=== PATIENT | male | born 1940 | race Caucasian/White ===

== ENCOUNTER 2020-04-01 09:46 | Observation (INO) | payer MEDICARE, OTHER ==
[~2020-04-01] VITALS: Ht 175.3 cm; Wt 70.8 kg
[~2020-04-01 09:46] MED LIST: Z ANDROGEL TP; Z.0.COZAAR50 MG PO; Z.0.FLOMAX0.4 MG PO; Z.0.LIPITOR20 MG PO; Z.0.NORCO 10-325 T1 PO; Z.0.PLAVIX75 MG PO; Z.1.TIZANIDINE HCL4 PO; [UNRECOGNIZED DRUG - OTHER] PO
[2020-04-01] MEDS: SODIUM CHLORIDE 0.9% 1000ML 1,000 ML IV SCH ×3 (10:15→12:30)
--- NOTE | 2020-04-01 10:20 | NUR ---
pt placed on droplet isolation for PUI of covid-19
[2020-04-01] MEDS ORDERED: SODIUM CHLORIDE 0.9% 1000ML 1,000 ML ONE (10:24)
[2020-04-01] MEDS ORDERED: IBUPROFEN 400 MG TAB ONE (10:24)
[2020-04-01] MEDS ORDERED: IBUPROFEN 400 MG TAB PO ONE (10:30)
[2020-04-01] MEDS: VANCOMYCIN HCL 1 GM in SODIUM CHLORIDE 0.9% 250ML 250 ML IV SCH ×2 (10:50→14:13)
[2020-04-01] MEDS ORDERED: VANCOMYCIN 1GM/NS 250 ML 250 ML ONE (10:53)
[2020-04-01] MEDS ORDERED: LEVOFLOXACIN 750MG/D5W 150ML 150 ML IV SCH ×2 (11:00→15:00)
--- NOTE | 2020-04-01 11:12 | Emergency Department Note ---
History of Present Illnes History of Present Illness Chief Complaint: General Medicine Complaints - altered mental status History of Present Illness This is a 79 year old male, with a history of ASCVD status post CABG, NIDDM, hypertension, hyperlipidemia, and chronic neck pain, is brought into the ED by his , for evaluation of altered mental status. Patient's states that she found him in the bathroom this morning, sitting on the commode, and "talking out of his head." She states that he felt warm, and when she checked his temperature he had a temp of 102. Patient did not receive anything for fever, prior to arrival. She was able to assist him in ambulating back to the bed, and then she prepared to bring him in for evaluation. Patient has had no prior sick symptoms, other then shows states "he has been complaining of being tired," lately. Prior to this morning, patient has not had any fever, nausea, vomiting, diarrhea, headache, or complaints of abdominal pain. Patient does have chronic neck pain following several cervical surgeries. Historian: Family Member () Arrival Mode: Car (vital is a U last long as he) [employer] Required: No ( is is ordered and an absolute is 1 she also.) Onset (how long ago): hour(s) (2) Location: general Quality: altered mental status Radiation: Reports non-radiation Severity: moderate Onset quality: sudden Duration (how long): hour(s) (2) Timing of current episode: constant Progression: unchanged Chronicity: new Context: Denies recent illness, Denies recent surgery, Denies recent travel, Denies trauma/injury, Denies new medications Relieving factors: none Exacerbating factors: none Associated symptoms: Reports confusion, Reports fever/chills, Reports malaise, Reports weakness; Denies chest pain, Denies cough, Denies headaches, Denies nausea/vomiting, Denies shortness of breath Treatments prior to arrival: none Risk factors: Elderly, comorbid conditions including DM, fever Past Medical/Family History Physician Review I have reviewed the patient's past medical and family history. Any updates have been documented here. Past Medical History Recent Fever: No (not until [employer]) Clinical Suspicion of Infectio: Yes New/Unexplained Change in Ment: Yes Past Medical History: Hypertension, Diabetes (NIDDM), CAD (s/p CABG), Kidney Stones, Hyperlipedemia Other Medical History: NEUROPATHY IN FEET BPH WEARS HEARING AIDS Chronic Neck Pain - followed by pain management [facility] Past Surgical History: CABG (x 3 in 2014;), Knee Replacement (left), Cataract Removal (bilateral;) Other Surgery: FUSED DISC IN NECK Shoulder Surgery Social History Smoking Cessation: Never Smoker Alcohol Use: None Any Illegal Drug Use: No TB Exposure/Symptoms: No Physically hurt or threatened: No Family History Family history of heart diseas: No Other Last Tetanus: UNK Any Pre-Existing Lines (PICC,: No Is patient up to date on immun: Yes Review of Systems Review of Systems Constitutional: Reports fever, Reports malaise EENTM: Reports no symptoms Cardiovascular: Denies chest pain, Denies edema, Denies syncope Respiratory: Denies cough, Denies dyspnea, Denies dyspnea on exertion Gastrointestinal: Denies abdominal pain, Denies constipation, Denies diarrhea, Denies nausea, Denies vomiting Genitourinary: Denies dysuria, Denies hematuria Musculoskeletal: Reports neck pain (chronic); Denies joint swelling Integumentary: Denies change in color, Denies rash Neurological: Denies headache, Denies tingling, Denies weakness Endocrine: Reports no symptoms Hematological/Lymphatic: Reports no symptoms; Denies anemia, Denies blood clots, Denies swollen glands Review of other systems: All other systems negative Physical Exam Related Data Allergies: Coded Allergies: No Known Allergies (Unverified , 02/02/12) Vital signs reviewed: Yes Physical Exam CONSTITUTIONAL Constitutional: Present well-developed, Present well-nourished; Absent distressed, Absent ill appearing HENT HENT: Present normocephalic, Present atraumatic, Present oropharynx clear/moist, Present nose normal; Absent nasal congestion, Absent rhinorrhea, Absent pharynx abnormal HENT L/R: Present left ext ear normal, Present right ext ear normal EYES Eyes: Reports PERRL, Reports conjunctivae normal NECK Neck: Present supple; Absent JVD, Absent cervical adenopathy PULMONARY Pulmonary: Present effort normal, Present other (bibasilar, diminshed breath sound); Absent respiratory distress CARDIOVASCULAR Cardiovascular: Present regular rhythm, Present heart sounds normal, Present capillary refill normal, Present normal rate, Present strong pulses GASTROINTESTINAL Abdominal: Present soft, Present nontender, Present bowel sounds normal; Absent distension, Absent tender, Absent guarding, Absent rebound GENITOURINARY Genitourinary: Present exam deferred SKIN Skin: Present warm, Present dry; Absent rash MUSCULOSKELETAL Musculoskeletal: Present ROM normal; Absent edema, Absent tenderness NEUROLOGICAL Neurological: Present alert, Present no gross motor or sensory deficits, Present abnormal gait (a bit unsteady), Present other (A&O x 2, person, place, year "2000 or 2001";); Absent cranial nerve deficit PSYCHOLOGICAL Results Laboratory Laboratory CBC - WBC = 15.8, nl H/H and Plt CMP - nl except for Gluc = 261, BUN = 26, Cr = 1.3, Lactic Acid = 3.21; Cardiacs - nl except for Myoglobin = 405; UA (straight cath.) - negative, except for Glu = 500 mg/dl, blo - small; Lab results reviewed: Yes Imaging Imaging results reviewed: Yes Impressions [place] [address] Patient Name: MILLIE ELENA MR #: [id number] : 1940 Age/Sex: 79/M Req #: [id number] Adm Physician: Ordered by: OLAYINKA EVANS MD Report #: [id number] Location: [facility] Room/Bed: Procedure: [id number] HOPD/CXR 2 VIEW - [facility] Exam Date: 04/01/20 Exam Time: 1050 REPORT STATUS: Signed EXAM: CXR 2 VIEW - [facility] DATE: 04/01/2020 10:50 AM INDICATION: Altered mental status COMPARISON: None FINDINGS: There are postsurgical changes from prior median sternotomy. The trachea is midline. There are mildly increased right greater than left basilar opacities which may reflect atelectasis. A developing airspace process is not entirely excluded. There is no evidence for large focal consolidation, pneumothorax, or significant pleural effusion. The cardiomediastinal silhouette and pulmonary vascular within normal limits. Degenerative changes noted at the visualized spine. No acute osseous abnormality is identified. IMPRESSION: Mild bibasilar opacities suggestive of atelectasis. Otherwise, no acute cardiopulmonary process identified. Signed by: Dr. Salbador Jacobs MD on 04/01/2020 11:35 AM Dictated By: SALBADOR JACOBS MD 1135 Transcribed By: ETELVINA on 04/01/20 1135 COPY TO: OLAYINKA EVANS MD~ [place] [address] Patient Name: MILLIE ELENA MR #: [id number] : 1940 Age/Sex: 79/M Req #: [id number] Adm Physician: Ordered by: OLAYINKA EVANS MD Report #: [id number] Location: [facility] Room/Bed: ___ Procedure: [id number] HOPD/CT BRAIN -[facility] Exam Date: 04/01/20 Exam Time: 1113 REPORT STATUS: Signed EXAMINATION: Head CT HISTORY: Alteration of consciousness, low O2 saturation COMPARISON: None. TECHNIQUE: Helical axial images of the head were obtained. Reformatted coronal and sagittal images from the axial data. Dose modulation, iterative reconstruction, and/or weight based adjustment of the mA/kV was utilized to reduce the radiation dose to as low as reasonably achievable. Image quality: Motion/streaking artifact limits the evaluation of the skull base and posterior cranial fossa. FINDINGS: Parenchyma: 1. Few scatter mostly juxtacortical and periventricular white matter hypodensities, most likely nonspecific chronic microvascular ischemic changes. 2. Portable tiny chronic lacunar infarct in the right globus pallidus. 3. No mass or hemorrhage. No CT evidence of acute territorial vascular insult. Extra-axial spaces:No abnormal density. No extra-axial fluid collections Brain volume: Normal for age. Ventricles: No hydrocephalus or displacement. Arteries: No density suggestive of thrombus. Dural sinuses: No abnormal density. Foramen magnum: No mass, Chiari malformation, or basilar invagination. Sella: No obvious mass. Paranasal/mastoid sinuses: Imaged portions unremarkable. Skull/Scalp: No lytic or blastic lesions. No fractures. IMPRESSION: 1. No acute intracranial hemorrhage or cortical infarcts. 2. Mild nonspecific chronic microvascular ischemic changes. Signed by: Dr. Aki Scruggs M.D. on 04/01/2020 11:32 AM Dictated By: AKI SCRUGGS MD 113 Transcribed By: ETELVINA on 04/01/20 113 COPY TO: OLAYINKA EVANS MD~ Diagnostics Tests Diagnostic test(s) reviewed: Yes Procedures 12 Lead ECG Interpretation ECG Interpretation : ECG: ECG 1 [employer]: Interpreted by ED physician Date: Apr 01, 2020 Time: 09:54 Prior ECG tracings: not available for review Rhythm: sinus rhythm Rate: normal BPM: 94 QRS axis: normal Conduction: right bundle branch block ST segments normal: Yes T waves normal: Yes Clinical Impression: abnormal ECG Assessment & Plan Medical Decision Making [facility] 12:00 pm - results of diagnostic testing reviewed with patient and at bedside, and explained that it appears patient may have bilateral lower lobe pneumonia, as the etiology of his fever. Patient also meets Sepsis criteria due to hyperthermia, leukocytosis, and altered mental status. Sepsis protocol was initiated at 10:45 am, including IV abx. No IVF bolus required, due to NO hypotension and initial Lactic Acid is NOT greater than 4. 12: 05 pm - on-call physician, Dr. Daniel olivas through his answering service. Breann Alcala RN spoke with Faisal Patel at [facility], and they do have telemetry bed available. Patient will be considered a PUI, due to fever, pulmonary infiltrates, and unknown Covid status. Patient's : Breann Elena - cell number: [phone] 12:25 pm - contacted answering service, to re-page, Dr. Sanchez. 12:30 pm - case discussed with Dr. Sanchez, who was agreeable to admission. Awaiting bed assignment. Lactic Acid #2, is due at 13:22, and we will draw that here, if patient is still here at the [facility]. Otherwise, RN, will pass this off in report. Reassessment Reassessment time: 11:39 Reassessment temp down to 100.3, following a dose of Advil. Pt remains mildly confused. Assessment & Plan Final Impression: (1) Sepsis (2) Pneumonia (3) DM (diabetes mellitus) type II controlled, neurological manifestation (4) Hypertension (5) Hyperlipidemia (6) ASCVD (arteriosclerotic cardiovascular disease) Depart Disposition: ADMITTED Home Meds Reported Medications Testosterone (Androgel) 5 Gm Gel.packet, 10 GM TP DAILY 02/02/12 Tamsulosin Hcl (Flomax) 0.4 Mg Cap.sr.24h, 0.4 MG PO DAILY 02/02/12 Hydrocodone Bit/Acetaminophen ([place] 10-325 Tablet) 1 Each Tablet, 1 EACH PO QID 02/02/12 Tizanidine Hcl (Tizanidine Hcl) 4 Mg Tablet, 8 MG PO BEDTIME 02/02/12 Aspirin (Adult Low Strength) 81 Mg Tablet.dr, 81 MG PO DAILY 02/02/12 Clopidogrel Bisulfate (Plavix) 75 Mg Tablet, 75 MG PO DAILY 02/02/12 Atorvastatin Calcium (Lipitor) 20 Mg Tablet, 20 MG PO DAILY 02/02/12 Losartan Potassium (Cozaar) 50 Mg Tablet, 50 MG PO DAILY 02/02/12 Medications in the ED Ibuprofen 800 mg STK-MED ONCE .ROUTE ; Start 04/01/20 at 10:24; Stop 04/01/20 at 10:18; Status DC Sodium Chloride 1,000 ml @ ud STK-MED ONCE .ROUTE ; Start 04/01/20 at 10:24; Stop 04/01/20 at 10:18; Status DC Ibuprofen 800 mg ONCE ONCE PO ; Start 04/01/20 at 10:30; Stop 04/01/20 at 10:39; Status DC Sodium Chloride 1,000 ml @ 1,000 mls/hr Q1H IV ; Start 04/01/20 at 10:30; Stop 04/01/20 at 12:30 Vancomycin HCl 1 gm/Sodium Chloride 250 ml @ 167 mls/hr ONCE IV ; Start 04/01/20 at 10:45; Stop 04/08/20 at 10:44 Vancomycin HCl [address]-MED ONCE .ROUTE ; Start 04/01/20 at 10:53; Stop 04/01/20 at 10:47; Status DC Cefepime HCl 100 ml @ 200 mls/hr ONCE IV ; Start 04/01/20 at 11:00; Stop 04/08/20 at 10:59; Status UNV Levofloxacin/ Dextrose 150 ml @ 100 mls/hr ONCE IV ; Start 04/01/20 at 11:00; Stop 04/08/20 at 10:59; Status UNV OLAYINKA EVANS MD Apr 01, 2020 11:12
--- NOTE | 2020-04-01 11:36 | Diagnostic Imaging Report ---
EXAMINATION: Head CT HISTORY: Alteration of consciousness, low O2 saturation COMPARISON: None. TECHNIQUE: Helical axial images of the head were obtained. Reformatted coronal and sagittal images from the axial data. Dose modulation, iterative reconstruction, and/or weight based adjustment of the mA/kV was utilized to reduce the radiation dose to as low as reasonably achievable. Image quality: Motion/streaking artifact limits the evaluation of the skull base and posterior cranial fossa. FINDINGS: Parenchyma: 1. Few scatter mostly juxtacortical and periventricular white matter hypodensities, most likely nonspecific chronic microvascular ischemic changes. 2. Portable tiny chronic lacunar infarct in the right globus pallidus. 3. No mass or hemorrhage. No CT evidence of acute territorial vascular insult. Extra-axial spaces:No abnormal density. No extra-axial fluid collections Brain volume: Normal for age. Ventricles: No hydrocephalus or displacement. Arteries: No density suggestive of thrombus. Dural sinuses: No abnormal density. Foramen magnum: No mass, Chiari malformation, or basilar invagination. Sella: No obvious mass. Paranasal/mastoid sinuses: Imaged portions unremarkable. Skull/Scalp: No lytic or blastic lesions. No fractures. IMPRESSION: 1. No acute intracranial hemorrhage or cortical infarcts. 2. Mild nonspecific chronic microvascular ischemic changes. Signed by: Dr. Bri Scruggs M.D. on 04/01/2020 11:32 AM
--- NOTE | 2020-04-01 11:39 | Diagnostic Imaging Report ---
EXAM: CXR 2 VIEW - [facility] DATE: 04/01/2020 10:50 AM INDICATION: Altered mental status COMPARISON: None FINDINGS: There are postsurgical changes from prior median sternotomy. The trachea is midline. There are mildly increased right greater than left basilar opacities which may reflect atelectasis. A developing airspace process is not entirely excluded. There is no evidence for large focal consolidation, pneumothorax, or significant pleural effusion. The cardiomediastinal silhouette and pulmonary vascular within normal limits. Degenerative changes noted at the visualized spine. No acute osseous abnormality is identified. IMPRESSION: Mild bibasilar opacities suggestive of atelectasis. Otherwise, no acute cardiopulmonary process identified. Signed by: Dr. Salbador Jacobs MD on 04/01/2020 11:35 AM
--- OUTSIDE RECORDS SUMMARY | 2020-04-01 12:06 | XMS REPORT | Summary of Care ---
Author Author [facility] Organization [facility] Address Unknown Phone Unavailable Care Team Providers Care Car Wash Attendant Automatic Name Role Phone Daniel Banda MD PCP Reason for Visit * Reason Comments Cardiology Follow-up Encounter Details Care Team Description Date Type Department Phil Mccurdy MD [address] [facility] [address] [place], [place] [id number] Cardiology Follow-up 09/08/2019 Office Visit [facility] [address] [facility] [address] [place] [address] Allergies No Known Allergiesdocumented as of this encounter (statuses as of 09/08/2019) Medications End Date Status Medication Sig Dispensed Refills Start Date Active finasteride (PROSCAR) 5 daily. 0 MG tablet 5 Active Tamsulosin HCl 0.4 MG daily. 0 04/28/20 1 CAPS 5 Active tizanidine (ZANAFLEX) 4 as needed. 0 MG tablet 5 Active ONGLYZA 5 MG TABS 0 5 Active Gabapentin, Once-Daily, Take 1 tablet 0 300 MG TABS by mouth 3 times daily. Active Aspirin (ADULT ASPIRIN EC Take 1 tablet 0 LOW STRENGTH) 81 MG TBEC by mouth daily. Active oxycodone-acetaminophen Take 1 Tab by 0 (PERCOCET) 10-325 MG per mouth every 4 tablet hours as needed. Active Empagliflozin (JARDIANCE Take 20 mg by 0 OR) mouth daily. Active atorvastatin (LIPITOR) 40 TAKE 1 TABLET 90 Tab 1 MG tablet BY MOUTH ONCE 9 DAILY Active losartan (COZAAR) 50 MG TAKE 1 TABLET 90 Tab 1 tablet BY MOUTH 9 EVERY DAY DIRECTED Active Metoprolol Succinate 50 Take 50 mg by 30 Cap 3 MG CS24 mouth daily. 0 09/08/2019 Discontinued (Dose adjustmen t) metoprolol (TOPROL XL) 25 Take 1 Tab by 90 Tab 3 MG XL tablet mouth daily. 0 documented as of this encounter (statuses as of 09/08/2019) Active Problems Problem Noted Date Palpitations 09/08/2019 Last Assessment & Plan: Will try increasing the metoprolol to 5 0 mg daily being aware of the fact that we could run into problems with BP and bradycardia in the presence of tizanidine. He will try to stop the lat ter. He is to stop the metoprolol and call i f any signs of intolerance occur. Chest pain 12/09/2018 Anginal equivalent (HCCode) 12/09/2018 Last Assessment & Plan: This is the first time he has mentioned the arm pain, but it has been present for >6mo. The pattern appears s table. He has no rest or nocturnal symptoms. Diabetic neuropathy, type II diabetes mellitus (HCCod e) 06/06/2018 Last Assessment & Plan: He is on a good regimen. My only recomm endation is to try to keep his A1Cs <7.0 if possible and see if there is an y improvement. DANIELLE (obstructive sleep apnea) 01/16/2018 Last Assessment & Plan: Can't tolerate the mask. ENT evaluation recommended. 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 LALA (dyspnea on exertion) 06/06/2017 Last Assessment & Plan: BNPs have been consistently in the 50-6 0 range. Benign hypertension 05/29/2016 Last Assessment & Plan: Controlled on the current regimen. Coronary artery disease due to lipid rich plaque 06/2016 Last Assessment & Plan: Asymtomatic on the current level of act ivity and medical regimen. 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 Banda. L ast Assessment & Plan: Recently put on Jardiance. His sugars d o not appear to be optimal at this time. documented as of this encounter (statuses as of 09/08/2019) Immunizations Name Administration Dates Next Due Influenza (whole) 05/17/2016 documented as of this encounter Social History Date Tobacco Use Types Packs/Day Years Used Never Smoker Smokeless Tobacco: Never Used Drinks/Week oz/Week Comments Alcohol Use No Sex Assigned at Date Recorded Not on file Industry Job Start Date Occupation Not on file Not on file Not on file Travel End Travel History Travel Start No recent travel history available. documented as of this encounter Last Filed Vital Signs Reading Time Taken Comments Vital Sign 108/60 09/08/2019 1:34 PM PROFESSIONAL SKATER Blood Pressure 63 09/08/2019 1:29 PM PROFESSIONAL SKATER Pulse - - Temperature - - Respiratory Rate - - Oxygen Saturation - - Inhaled Oxygen Concentration 83.9 kg (185 lb) 09/08/2019 1:29 PM PROFESSIONAL SKATER Weight 175.3 cm (5' 9") 09/08/2019 1:29 PM PROFESSIONAL SKATER Height 27.32 09/08/2019 1:29 PM PROFESSIONAL SKATER Body Mass Index documented in this encounter Progress Notes * Phil Mccurdy MD - 09/08/2019 1:30 PM PROFESSIONAL SKATER Patient Name: Manfred Elena Date of : 1940 Age: 79 y.o. Primary Care Physician: Daniel Banda MD VISIT DIAGNOSIS ICD-10-CM 1. Palpitations R00.2 2. Coronary artery disease due to lipid rich plaque I25.10 I25.83 HPI: The patient comes in for follow up. Monitor shows bursts of PACs which are proba marii symptomatic. No atrial fibrillation or tachycardia. Will increase his metopr olol to see if he feels any better. His main issue continues to be his neuropath y which is now spreading up to his hips. He can walk without difficulty. He is n or sure whether the gabapentin is helping, but does not want to stop it because of the risk of seizures. He has chronic neck pain as well without radiculopathy and has had a cervical procedure (fusion?) in the past. These symptoms are contr olled with bid analgesics. His Hgb A1C is 7.9. He admits to not following his di et. ROS: MEDICAL HISTORY: Past Medical History: Diagnosis Date Angina pectoris (HCCode) Arthritis Bladder neck obstruction Coronary artery disease Dyspnea Fatigue GERD (gastroesophageal reflux disease) Hepatitis Hypertension Low testosterone Mixed hyperlipidemia Peripheral neuropathy Pre-diabetes Renal calculi Sleep apnea with use of continuous positive airway pressure (CPAP) SURGICAL HISTORY: Past Surgical History: Procedure Laterality Date HX ACHILLES TENDON SURGERY 07/31/1999 HX CATARACT-L HX CORONARY ARTERY BYPASS 06/17/2014 Chrissy: RCA, OM, LAD/PATRICIO HX CYSTOSCOPY 11/07/2005 HX LITHOTRIPSY 12/30/2011 HX NECK SURGERY 11/11/2000 HX OTHER SURGICAL HISTORY 1970 Removal of renal calculus HX PROSTATE BIOPSY 2011 HX SHOULDER SURGERY 2006 FAMILY HISTORY: Family History Problem Relation Name Age of Onset Hypertension Brother Diabetes Brother ALLERGIES: Patient has no known allergies. CURRENT MEDICATIONS: Current Outpatient Medications Medication Sig Dispense Refill Aspirin (ADULT ASPIRIN EC LOW STRENGTH) 81 MG TBEC Take 1 tablet by mouth da yoli. atorvastatin (LIPITOR) 40 MG tablet TAKE 1 TABLET BY MOUTH ONCE DAILY 90 Tab 1 Empagliflozin (JARDIANCE OR) Take 20 mg by mouth daily. finasteride (PROSCAR) 5 MG tablet daily. Gabapentin, Once-Daily, 300 MG TABS Take 1 tablet by mouth 3 times daily. losartan (COZAAR) 50 MG tablet TAKE 1 TABLET BY MOUTH EVERY DAY DIRECTED 90 Tab 1 Metoprolol Succinate 50 MG CS24 Take 50 mg by mouth daily. 30 Cap 3 ONGLYZA 5 MG TABS oxycodone-acetaminophen (PERCOCET) 10-325 MG per tablet Take 1 Tab by mouth every 4 hours as needed. Tamsulosin HCl 0.4 MG CAPS daily. tizanidine (ZANAFLEX) 4 MG tablet as needed. No current facility-administered medications for this visit. VITAL SIGNS: Vitals: 09/08/19 1329 09/08/19 1334 BP: 110/54 108/60 BP Location: right arm left arm Patient Position: Sitting Sitting Pulse: 63 Weight: 185 lb (83.9 kg) Height: 5' 9" (1.753 m) PHYSICAL EXAM: General: In no acute distress. HEENT: EOMI, PRELA. Thyroid is unremarkable. No carotid bruits. No JVD. Other degroot unremarkable. Chest: No significant thoracic deformity is present. The accessory muscles of respiration are not in use. The chest is c lear to ausculation and percussion. Cardiovascular: Regular rhythm.No murmur, gallop, or rub.The apical impulse i s not palpable. Abdomen: Soft, non-tender.No organomegaly, no bruits. Bowel sounds are normal . Extremities: No obvious deformities. Full range of motion. Warm. No edema. Pe ripheral pulses are present and equal. Skin: Warm and dry. No cyanosis, clubbing. No lesions are visible on the expo sed areas of the skin. Neurologic: No cranial nerve signs. Symmetric. MSR's are not tested. Neuropsych: Oriented X 3. Normal affect . ASSESSMENT: PLAN OF CARE / RECOMMENDATIONS: Coronary artery disease due to lipid rich plaque Asymtomatic on the current level of activity and medical regimen. Palpitations Will try increasing the metoprolol to 50 mg daily being aware of the fact that po [place] could run into problems with BP and bradycardia in the presence of tizanidine. He will try to stop the latter. He is to stop the metoprolol and call if any signs of intolerance occur. The need to get his Hgb A1c <7 if possible was stressed. ESSIONAL SKATER documented in this encounter Plan of Treatment Date/Time Name Type Priority Associated Diag noses 09/08/2019 1:29 PM PROFESSIONAL SKATER ELECTROCARDIOGRAM ECG Routine Palpitations COMPLETE Health Maintenance Due Date Last Done Comments MEDICARE AWV 1940 TETANUS SHOT (ADULT) 1954 ANNUAL DIABETIC FOOT EXAM 1957 ANNUAL DIABETIC 1957 RETINOPATHY SCREENING BMI FOLLOW UP PLAN 1957 FALL SCREEN 2004 PNEUMOVAX >=65 (PPSV23) 2004 PREVNAR >= 65 (PCV13) 2004 MEDICARE AWV (Initial) 06/03/2014 FLU VACCINE > 6 MONTHS 03/19/2019 05/17/2016, documented as of this encounter Results Not on filedocumented in this encounter Visit Diagnoses Diagnosis Palpitations - Primary Coronary artery disease due to lipid ri ch plaque documented in this encounter Insurance Type Payer Benefit Subscriber ID Effective Phone Address Plan / Dates Group Medicare MEDICARE MEDICARE xxxxxxxxxxx [address] -Present [id number] [place] [address] Medicare UNITED HEALTHCARE AARP xxxxxxxxxxx 2016-P [address] [place] [id number] [place] [phone] documented as of this encounter
--- OUTSIDE RECORDS SUMMARY | 2020-04-01 12:06 | XMS REPORT | Continuity of Care Document ---
Author Author [facility] t Organization [facility] Address [address] [place] [address] Phone Unavailable Care Team Providers Care Repair Order Clerk Name Role Phone Jeri EVANS Unavailable Evangelist Mccudry MD Problems This patient has no known problems. Allergies, Adverse Reactions, Alerts This patient has no known allergies or adverse reactions. Medications This patient has no known medications. Procedures This patient has no known procedures. Encounters Start Date/Time End Date/Time Encounter Type Admission Type Attendi [facility] Care Department Encounter ID Source 2019-10-19 11:18:58 2019-10-19 13:17:17 Office Visit [facility] [id number] 2019-09-08 13:08:23 2019-09-08 13:38:23 Office Visit [facility] [id number] Results Test Description Test Time Test Comments Results Result Comments Source CXR 2 VIEW - HOPD 2020-04-01 11:33:00 [facility] [address] [place] [address] Patient Name: MILLIE ELENA MR #: [id number] : 1940 Age/Sex: 79/M Req #: [id number] Adm Physician: Ordered by: OLAYINKA EVANS MD Report #: [id number] Location: [facility] Room/Bed: Procedure: [id number] HOPD/CXR 2 VIEW - HOPD Exam Date: 04/01/20 Exam Time: 1050 REPORT STATUS: Signed EXAM: CXR 2 VIEW - [facility] DATE: 04/01/2020 10:50 AM INDICATION: Altered mental status COMPARISON: None FINDINGS: There are postsurgical changes from prior median sternotomy. The trachea is midline. There are mildly increased right greater than left basilar opacities which may reflect atelectasis. A developing airspace process is not entirely excluded. There is no evidence for large focal consolidation, pneumothorax, or significant pleural effusion. The cardiomediastinal silhouette and pulmonary vascular within normal limits. Degenerative changes noted at the visualized spine. No acute osseous abnormality is identified. IMPRESSION: Mild bibasilar opacities suggestive of atelectasis. Otherwise, no acute cardiopulmonary process identified. Signed by: Dr. Salbador Jacobs MD on 04/01/2020 11:35 AM Dictated By: SALBADOR JACOBS MD 1135 Transcribed By: ETELVINA on 04/01/20 1135 COPY TO: OLAYINKA EVANS MD CT BRAIN -HOPD 2020-04-01 11:30:00 [place] [address] Patient Name: MILLIE ELENA MR #: [id number] : 1940 Age/Sex: 79/M Req #: [id number] Adm Physician: Ordered by: OLAYINKA EVANS MD Report #: [id number] Location: [facility] Room/Bed: Procedure: [id number] HOPD/CT BRAIN WO-HOPD Exam Date: 04/01/20 Exam Time: 1113 REPORT STATUS: Signed EXAMINATION: Head CT HISTORY: Alteration of consciousness, low O2 saturation COMPARISON: None. TECHNIQUE: Helical axial images of the head were obtained. Reformatted coronal and sagittal images from the axial data. Dose modulation, iterative reconstructi on, and/or weight based adjustment of the mA/kV was utilized to reduce the radiation dose to as low as reasonably achievable. Image quality: Motion/streaking artifact limits the evaluation of the skull base and posterior cranial fossa. FINDINGS: Parenchyma: 1. Few scatter mostly juxtacortical and periventricular white matter hypodensities, most likely nonspecific chronic microvascular ischemic changes. 2. Portable tiny chronic lacunar infarct in the right globus pallidus. 3. No mass or hemorrhage. No CT evidence of acute territorial vascular insult. Extra-axial spaces:No abnormal density. No extra-axial fluid collections Brain volume: Normal for age. Ventricles: No hydrocephalus or displacement. Arteries: No density suggestive of thrombus. Dural sinuses: No abnormal density. Foramen magnum: No mass, Chiari malformation, or basilar invagination. Sella: No obvious mass. Paranasal/mastoid sinuses: Imaged portions unremarkable. Skull/Scalp: No lytic or blastic lesions. No fractures. IMPRESSION: 1. No acute intracranial hemorrhage or cortical infarcts. 2. Mild nonspecific chronic microvascular ischemic changes. Signed by: Dr. Aki Scruggs M.D. on 04/01/2020 11:32 AM Dictated By: AKI SCRUGGS MD 31 Transcribed By: ETELVINA on 04/01/201131 COPY TO: OLAYINKA EVANS MD
--- OUTSIDE RECORDS SUMMARY | 2020-04-01 12:06 | XMS REPORT | Summary of Care ---
Author Author [facility] Organization [facility] Address Unknown Phone Unavailable Care Team Providers Care Rental Sales Representative Name Role Phone Daniel Banda MD PCP Reason for Visit * Reason Comments Cardiology Follow-up Encounter Details Care Team Description Date Type Department Phil Mccurdy MD [address] [facility] [address] [place], [place] [id number] Cardiology Follow-up 10/19/2019 Office Visit [facility] [address] [facility] [address] [place] [address] Allergies No Known Allergiesdocumented as of this encounter (statuses as of 10/19/2019) Medications End Date Status Medication Sig Dispensed [...] BY MOUTH 9 EVERY DAY DIRECTED Active metoprolol (TOPROL XL) Take 1 Tab by 90 Tab 3 0 100 MG XL tablet mouth daily. 0 10/19/2019 Discontinued (Dose adjustmen t) Metoprolol Succinate 50 Take 50 mg by 30 Cap 3 MG CS24 mouth daily. 0 documented as of this encounter (statuses as of 10/19/2019) Active Problems Problem Noted Date Palpitations 09/08/2019 Last Assessment & Plan: They appear to be improved. Will follow clinically. Diabetic neuropathy, type II diabetes mellitus (HCCod e) 06/06/2018 Last Assessment & Plan: He is on a good regimen. My only recomm endation is to try to keep his A1Cs <7.0 if possible and see if there is an y improvement. DANIELLE (obstructive sleep apnea) 01/16/2018 Last Assessment & Plan: Can't tolerate the mask. ENT evaluation recommended. LALA (dyspnea on exertion) 06/06/2017 Last Assessment & Plan: Negative TMT to 95% of predicted max at 7:00 min on the James protocol. 2 previous BNPs have been in the normal range. Benign hypertension 05/29/2016 Last Assessment & Plan: Controlled on the current regimen. Coronary artery disease due to lipid rich plaque 06/2016 Last Assessment & Plan: Asymtomatic on the current level of act ivity and medical regimen. 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 Banda. L ast Assessment & Plan: This remains his most vexing problem. I suggested that he consider seeing if an orthotic might help since he has had problems with his feet in the past. documented as of this encounter (statuses as of 10/19/2019) Resolved Problems Problem Noted Date Resolved Date Chest pain 12/09/2018 10/19/2019 Anginal equivalent (HCCode) 12/09/2018 10/19/2019 Last Assessment & Plan: This is the first time he has mentioned the arm pain, but it has been present for >6mo. The pattern appears s table. He has no rest or nocturnal symptoms. documented as of this encounter (statuses as of 10/19/2019) Immunizations Name Administration Dates Next Due Influenza [...] Signs Reading Time Taken Comments Vital Sign 110/52 10/19/2019 12:35 PM LONG WALL MINING MACHINE HELPER Blood Pressure 51 10/19/2019 12:29 PM LONG WALL MINING MACHINE HELPER Pulse - - Temperature - - Respiratory Rate - - Oxygen Saturation - - Inhaled Oxygen Concentration 84.4 kg (186 lb) 10/19/2019 12:29 PM LONG WALL MINING MACHINE HELPER Weight 175.3 cm (5' 9") 10/19/2019 12:29 PM LONG WALL MINING MACHINE HELPER Height 27.47 10/19/2019 12:29 PM LONG WALL MINING MACHINE HELPER Body Mass Index documented in this encounter Progress Notes * Phil Mccurdy MD - 10/19/2019 11:30 AM LONG WALL MINING MACHINE HELPER Patient Name: Manfred Elena Date of : 1940 Age: 79 y.o. Primary Care Physician: Daniel Banda MD VISIT DIAGNOSIS ICD-10-CM 1. Benign hypertension I10 2. Palpitations R00.2 3. Orthostatic hypertension I10 4. Diabetes 1.5, managed as type 2 (HCCode) E13.9 5. Coronary artery disease due to lipid rich plaque I25.10 I25.83 6. LALA (dyspnea on exertion) R06.09 7. Type 2 diabetes mellitus with diabetic neuropathy, without long-term current use of insulin (HCCode) E11.40 HPI: The patient comes in for evaluation of clinical status and medical regimen. He i s tolerating the higher dose of metoprolol well and has noted an appropriate dec rease in his heart rate during the day. He will start softball this week. We eliza l see how he does. Since the last visit there have been no other diagnoses, surg eries, changes in or reactions to medications. The current medications are well tolerated. ROS: MEDICAL HISTORY: Past Medical History: Diagnosis [...] MOUTH EVERY DAY DIRECTED 90 Tab 1 metoprolol (TOPROL XL) 100 MG XL tablet Take 1 Tab by mouth daily. 90 Tab 3 ONGLYZA 5 MG TABS oxycodone-acetaminophen (PERCOCET) 10-325 MG per tablet Take 1 Tab by mouth every 4 hours as needed. Tamsulosin HCl 0.4 MG CAPS daily. tizanidine (ZANAFLEX) 4 MG tablet as needed. No current facility-administered medications for this visit. VITAL SIGNS: Vitals: 10/19/19 1229 10/19/19 1235 BP: 110/60 110/52 BP Location: right arm left arm Patient Position: Sitting Sitting Pulse: 51 Weight: 186 lb (84.4 kg) Height: 5' 9" (1.753 m) PHYSICAL EXAM: General: In no acute distress. HEENT: EOMI, PRELA. Thyroid is unremarkable. No carotid bruits. No JVD. Other degroot unremarkable. Chest: No significant thoracic deformity is present. The accessory muscles of respiration are not in use. The chest is clear to ausculation and percussion. Cardiovascular: Regular rhythm.No murmur, gallop, or rub. The apical impulse is not palpable. Abdomen: Soft, non-tender.No organomegaly, no bruits. Bowel sounds are normal Extremities: No obvious deformities. Full range of motion. Warm. No edema Skin: Warm and dry. No cyanosis, clubbing. No lesions are visible on the expo sed areas of the skin. Neurologic: No cranial nerve signs. Symmetric. MSR's are absent in the lower extremities. Gait and station are normal. Neuropsych: Oriented X 3. Normal affect ASSESSMENT: PLAN OF CARE / RECOMMENDATIONS: Palpitations They appear to be improved. Will follow clinically. Orthostatic hypertension Not currently an issue despite the increase in the metoprolol dose. Diabetes 1.5, managed as type 2 (HCCode) This remains his most vexing problem. I suggested that he consider seeing if an orthotic might help since he has had problems with his feet in the past. Benign hypertension Controlled on the current regimen. LALA (dyspnea on exertion) Negative TMT to 95% of predicted max at 7:00 min on the James protocol. 2 previous BNPs have been in the normal range. WALL MINING MACHINE HELPER documented in this encounter Plan of Treatment Date/Time Name Type Priority Associated Diag noses 10/19/2019 12:32 PM LONG WALL MINING MACHINE HELPER ELECTROCARDIOGRAM ECG Routine Benign hyper tension COMPLETE Health Maintenance Due Date Last Done Comments TETANUS SHOT (ADULT) 1954 ANNUAL DIABETIC FOOT EXAM 1957 ANNUAL DIABETIC 1957 RETINOPATHY SCREENING BMI FOLLOW UP PLAN 1957 FALL SCREEN 2004 PNEUMOVAX >=65 (PPSV23) 2004 PREVNAR >= 65 (PCV13) 2004 MEDICARE AWV (Initial) 06/03/2014 FLU VACCINE > 6 MONTHS 03/19/2019 05/17/2016, documented as of this encounter Results Not on filedocumented in this encounter Visit Diagnoses Diagnosis Benign hypertension - Primary Essential hypertension, benign Palpitations 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, managed as type 2 (HCCode ) Coronary artery disease due to lipid ri ch plaque LALA (dyspnea on exertion) Other dyspnea and respiratory abnormali ty Type 2 diabetes mellitus with diabetic neuropathy, without long-term current use of insulin (HCCode) documented in this encounter Insurance Type Payer Benefit Subscriber ID Effective Phone Address Plan / Dates Group Medicare MEDICARE MEDICARE xxxxxxxxxxx [address] -Present [id number] [place] [address] Medicare UNITED HEALTHCARE AARP xxxxxxxxxxx 2016-P [address] MEDICARE [place] [id number] SUPPLEMENT [facility] [place] [phone] documented as of this encounter
[2020-04-01] MEDS ORDERED: SODIUM CHLORIDE FLUSH 10 ML SYR INJ PRN (12:30)
[2020-04-01] MEDS ORDERED: ASPIRIN 81 MG CHEW TAB PO ONE (12:30)
--- OUTSIDE RECORDS SUMMARY | 2020-04-01 12:33 | XMS REPORT | Continuity of Care Document ---
Author Author [facility] t Organization [facility] Address [address] [place] [address] Phone Unavailable Care Team Providers Care Pawn Shop Keeper Name Role Phone Jeri EVANS Unavailable Evangelist Mccurdy MD Problems This patient has no known problems. Allergies, Adverse Reactions, Alerts This patient has no known allergies or adverse reactions. Medications This patient has no known medications. Procedures This patient has no known procedures. Encounters Start Date/Time End Date/Time Encounter Type Admission Type Attendi [facility] Care Department Encounter ID Source 2019-10-19 11:18:58 2019-10-19 13:17:17 Office Visit Phil [facility] [id number] 2019-09-08 13:08:23 2019-09-08 13:38:23 Office Visit Phil [facility] [id number] Results Test Description Test Time Test Comments Results Result Comments Source CXR 2 VIEW - HOPD 2020-04-01 11:33:00 [facility] [address] [place] [address] Patient Name: MILLIE ELENA MR #: [id number] : 1940 Age/Sex: 79/M Req #: [id number] Adm Physician: Ordered by: OLAYINKA EVANS MD Report #: [id number] Location: [facility] Room/Bed: Procedure: [id number] HOPD/CXR 2 VIEW - HOPD Exam Date: [...] EVANS MD CT BRAIN -HOPD 2020-04-01 11:30:00 [place] [address] Patient Name: MILLIE ELENA MR #: [id number] : 1940 Age/Sex: 79/M Req #: [id number] Adm Physician: Ordered by: OLAYINKA EVANS MD Report #: [id number] Location: [facility] Room/Bed: Procedure: [id number] HOPD/CT BRAIN WO-HOPD Exam Date: 04/01/20 Exam [...]
[2020-04-01] MEDS: CEFEPIME 2 GM/NS 0.9% 100 ML 100 ML IV SCH ×2 (12:48→14:13)
[2020-04-01] MEDS ORDERED: CEFEPIME 1GM/NS 0.9% 50 ML 100 ML IV ONE (12:52)
--- NOTE | 2020-04-01 13:09 | NUR ---
[facility] NOTIFIED OF NEED FOR TRANSFER TO [facility], ETA 30-45 MINUTES
--- NOTE | 2020-04-01 14:48 | NUR ---
Patient arrived to unit at 1430 from [facility]. Patient was oriented to room, procedures, and plan of care. Patient was assessed and IV is in place. NC on 2L. Will continue to monitor and alert MD of arrival.
[2020-04-01] MEDS ORDERED: SODIUM CHLORIDE 0.9% 250ML 250 ML ONE (14:59)
[2020-04-01 15:00] VITALS: BP 106/44
[2020-04-01] MEDS ORDERED: OXYCONTIN10 MG PO (16:28)
[2020-04-01] MEDS ORDERED: LATANOPROST2.5 ML OP (16:28)
[2020-04-01] MEDS ORDERED: GABAPENTIN300 MG PO (16:28)
[2020-04-01] MEDS ORDERED: ONGLYZA5 MG (16:28)
[2020-04-01] MEDS ORDERED: JARDIANCE10 MG (16:28)
[2020-04-01] MEDS ORDERED: METOPROLOL TAR100 MG PO (16:30)
[2020-04-01 17:52] LABS: CREATINE KINASE 136 IU/L (30-200)
--- NOTE | 2020-04-01 19:13 | History and Physical ---
The patient is admitted to the hospital as a PUI and also for altered mental status. HISTORY OF PRESENTING ILLNESS: An 79-year-old man with a history of lfm-omyqlhu-rfxreqqrg diabetes mellitus, history of coronary artery disease, history of hypertension, hyperlipidemia, and chronic neck pain, was in his usual state of health until this morning. The noticed that the patient was not normal. He was talking incoherently and she checked his temperature and had a fever of 102 to 103 degrees. The patient was brought to the emergency room and was admitted to the hospital for multifocal pneumonia. PAST MEDICAL HISTORY: History of coronary artery disease, hypertension, diabetes mellitus, hyperlipidemia, chronic neck pain, BPH, and chronic low back pain too. MEDICATIONS: He takes at home is aspirin 81 mg, atorvastatin 40 mg daily, Jardiance 10 mg daily, gabapentin 300 mg 3 times a day, hydrocodone 10/325, latanoprost 2.5, losartan 50 mg daily, metoprolol 100 mg daily, oxycodone 10 mg ER, Onglyza 5 mg, tamsulosin 0.5, and tizanidine 4 mg daily. SOCIAL HISTORY: No EtOH. No IV drug abuse. No history of smoking. Positive for history of taking pain medications. FAMILY HISTORY: Noncontributory. ALLERGIES: NO DRUG ALLERGIES NOTED. REVIEW OF SYSTEMS: Negative for chest pain. No shortness of breath. No nausea. No vomiting. No diarrhea. No constipation. No rectal bleeding. No hematochezia. No hematemesis. Currently, the patient is alert and oriented x3 with no motor deficits. No cognitive deficits either or sensory deficits. PAST SURGICAL HISTORY: Includes lithotripsy, knee arthroscopic, Achilles tendon surgery, neck surgery, and right shoulder surgery. PHYSICAL EXAMINATION: VITAL SIGNS: Temperature 98.1, pulse of 64, respirations of 19, blood pressure is 106/44, and pulse oximetry of 98% on 2 L of oxygen. HEENT: Normocephalic and atraumatic. Pupils are reactive. CVS: S1 and S2 normal. Regular rate and rhythm. LUNGS: Decreased air entry. Positive for some crackles. ABDOMEN: Soft, nontender, and nondistended. EXTREMITIES: No clubbing. No cyanosis. No edema. LABORATORY VALUES: Done from [facility] shows white count of 15,000. CMP; glucose 261, BUN of 26, and creatinine of 1.3. Lactic acid was 3.21. Cardiac enzymes are negative. UA was done. Straight cath negative except for glucose of 500. IMAGING STUDIES: Chest x-ray done, shows mild bibasilar opacities suggestive of atelectasis. Brain CT shows no acute intracranial hemorrhages or cortical infarcts, nonspecific chronic microvascular changes. ASSESSMENT AND PLAN: This is Mr. Manfred Elena with: 1. PUI. 2. History of hypertension and hyperlipidemia. 3. Acute mental status changes. 4. Fever. 5. Hyperlipidemia. PLAN: 1. The patient is much better today after receiving antibiotics. Currently asymptomatic, breathing well. No complaints. 2. Start the patient on azithromycin and Rocephin. 3. Start on Lovenox 30 mg subcutaneous b.i.d. Increase fluids for acute renal failure. 4. Continue current medication. Further recommendations per clinical course. The patient is currently doing much better. He can be discharged if okay with ID tomorrow. MD HAILEY Roberts/MODL /[id number]
[2020-04-01 20:00] VITALS: BP 136/65
[2020-04-01] MEDS ORDERED: AZITHROMYCIN 500MG/NS 250 ML 250 ML IV SCH (20:00)
[2020-04-01] MEDS: GABAPENTIN 300 MG CAP PO SCH (20:45)
[2020-04-01] MEDS: ENOXAPARIN 30 MG/0.3 ML SYR SC SCH (20:45)
[2020-04-01] MEDS ORDERED: TIZANIDINE HCL 4 MG TAB PO SCH (21:00)
[2020-04-01 21:26] VITALS: BP 136/65
--- NOTE | 2020-04-01 21:28 | NUR ---
SPOKE TO DR. HICKS AT THIS TIME. NEW ORDER RECEIVED FOR PRN PO TYLENOL.
[2020-04-01] MEDS ORDERED: ACETAMINOPHEN 325 MG TAB PO PRN (21:30)
[2020-04-01] MEDS ORDERED: CEFTRIAXONE SOD 1 GM/NS 50 ML 50 ML IV SCH (22:00)
[2020-04-02] VITALS: BP 107/62
[2020-04-02 02:12] LABS: BASOPHILS % 0.3 % (0.0-1.0); EOSINOPHILS # (AUTO) 0.1 (0.0-0.4); EOSINOPHILS % 0.7 % (0.0-6.0); HEMATOCRIT 35.6 % (38.2-49.6); HEMOGLOBIN 11.3 g/dL (14.0-18.0); LYMPHOCYTES % 13.1 % (18.0-39.1); MEAN CORPUSCULAR HEMOGLOBIN 31.1 pg (28-32); MEAN CORPUSCULAR HGB CONC 31.7 g/dL (31-35); MEAN CORPUSCULAR VOLUME 98.1 fL (81-99); MONOCYTES # (AUTO) 1.6 (0.2-0.8); MONOCYTES % 10.9 % (4.4-11.3); NEUTROPHILS % 74.3 % (38.7-80.0); PLATELET COUNT 175 x10e3/uL (140-360); RED BLOOD COUNT 3.63 x10e6/uL (4.3-5.7); RED CELL DISTRIBUTION WIDTH 12.5 % (11.7-14.4)
[2020-04-02 02:29] LABS: ANION GAP 13.6 mmol/L (8-16); BLOOD UREA NITROGEN 27 mg/dL (7-26); BUN/CREATININE RATIO 24 (6-25); CALCIUM 8.5 mg/dL (8.4-10.2); CARBON DIOXIDE 22 mmol/L (22-29); CHLORIDE 107 mmol/L (98-107); CREATININE, SERUM 1.12 mg/dL (0.72-1.25); EST GLOMERULAR FILTRATION RATE > 60 ML/MIN (60-); GLUCOSE 100 mg/dL (74-118); POTASSIUM 4.6 mmol/L (3.5-5.1); SODIUM 138 mmol/L (136-145)
[2020-04-02 02:37] LABS: CREATINE KINASE MB 2.8 ng/mL (0-5.0)
[2020-04-02 04:00] VITALS: BP 93/54
[2020-04-02 05:30] VITALS: BP 110/53
--- NOTE | 2020-04-02 06:32 | NUR ---
NOTIFIED DR. HICKS AND STICK ROLLER OF NEGATIVE COVID RESULT. AND STICK ROLLER SAID OK FOR PATIENT TO STAY IN ROOM [address] ERICKSON SEE THE PATIENT AND CLEARED FOR DISCHARGE TODAY.
[2020-04-02 07:26] VITALS: BP 120/55
[2020-04-02] MEDS: GABAPENTIN 300 MG CAP PO SCH (08:55)
[2020-04-02] MEDS: ENOXAPARIN 30 MG/0.3 ML SYR SC SCH (08:56)
[2020-04-02] MEDS ORDERED: ASPIRIN 81 MG ENTERIC COATED PO SCH (09:00)
[2020-04-02] MEDS ORDERED: TIZANIDINE HCL 4 MG TAB PO SCH (09:00)
[2020-04-02] MEDS ORDERED: METOPROLOL TARTRATE 50 MG TAB PO SCH (09:00)
[2020-04-02] MEDS ORDERED: ATORVASTATIN 40 MG TAB PO SCH (09:00)
[2020-04-02] MEDS ORDERED: TAMSULOSIN HCL 0.4 MG CAP PO SCH (09:00)
[2020-04-02] MEDS ORDERED: LOSARTAN POTASSIUM 100 MG TAB PO SCH (09:00)
[2020-04-02 10:59] LABS: CREATINE KINASE MB 3.5 ng/mL (0-5.0)
[2020-04-02 11:07] VITALS: BP 98/47
--- NOTE | 2020-04-02 11:43 | NUR ---
An 79-year-old man with a history of bfv-xymcidf-anvuovzxp diabetes mellitus, history of coronary artery disease, history of hypertension, hyperlipidemia, and chronic neck pain, was in his usual state of health until this morning. The noticed that the patient was not normal. He was talking incoherently and she checked his temperature and had a fever of 102 to 103 degrees. The patient was brought to the emergency room and was admitted to the hospital for multifocal pneumonia. PAST MEDICAL HISTORY: History of coronary artery disease, hypertension, diabetes mellitus, hyperlipidemia, chronic neck pain, BPH, and chronic low back pain too. MEDICATIONS: He takes at home is aspirin 81 mg, atorvastatin 40 mg daily, Jardiance 10 mg daily, gabapentin 300 mg 3 times a day, hydrocodone 10/325, latanoprost 2.5, losartan 50 mg daily, metoprolol 100 mg daily, oxycodone 10 mg ER, Onglyza 5 mg, tamsulosin 0.5, and tizanidine 4 mg daily. SOCIAL HISTORY: No EtOH. No IV drug abuse. No history of smoking. Positive for history of taking pain medications. FAMILY HISTORY: Noncontributory. ALLERGIES: NO DRUG ALLERGIES NOTED. REVIEW OF SYSTEMS: Negative for chest pain. No shortness of breath. No nausea. No vomiting. No diarrhea. No constipation. No rectal bleeding. No hematochezia. No hematemesis. Currently, the patient is alert and oriented x3 with no motor deficits. No cognitive deficits either or sensory deficits. PAST SURGICAL HISTORY: Includes lithotripsy, knee arthroscopic, Achilles tendon surgery, neck surgery, and right shoulder surgery. [id number]
[2020-04-02] MEDS ORDERED: CEFUROXIME500 MG PO (13:26)
[2020-04-02] MEDS ORDERED: AZITHROMYCIN250 MG PO (13:27)
--- NOTE | 2020-04-02 13:50 | Consultation ---
DATE OF CONSULTATION: HISTORY OF PRESENT ILLNESS: The patient is an 79-year-old white male with history of diabetes mellitus, coronary artery disease, hypertension, hyperlipidemia, chronic back pain, looking healthy, comes in with fever, chills, altered mental status. Chest x-ray, which showed some haziness. The patient was admitted, started on antibiotic. He is feeling much better today. There is no new complaint. The patient was admitted. The patient is currently lying in bed comfortably, has no complaints. PAST MEDICAL HISTORY: As above. PAST SURGICAL HISTORY: As above. ALLERGIES: NKA. SOCIAL HISTORY: He denies smoking, drug abuse, or alcohol abuse. REVIEW OF SYSTEMS: HEENT: Negative. PULMONARY: Negative. CARDIAC: Negative. : Negative. GI: Negative. SKIN: No rash. He is feeling much better, but when he first came he says he was not doing well. LABORATORY DATA: Reviewed. His cultures showed no growth since COVID-19. PCR was negative. PHYSICAL EXAMINATION: GENERAL: Currently alert, oriented. VITAL SIGNS: Stable. Currently afebrile. HEENT: He is not icteric. NECK: Supple. CHEST: Clear. HEART: S1 and S2. ABDOMEN: Soft. Bowel sounds present. EXTREMITIES: No edema. SKIN: There is no rash. IMPRESSION: Sepsis on admission. Currently, he looks really good. Blood cultures are negative. He has responded to Rocephin and azithromycin. It could be atypical pneumonia. I would suggest that he could go home with Ceftin and azithromycin, seven more days of Ceftin and requires Z-Bonifacio. Continue supportive care as an outpatient. Discussed with the patient. He is eager to go home. It is okay with me to go home. MD ABBY Rodgers/LYNN /[id number]
--- NOTE | 2020-04-02 14:28 | NUR ---
pt dc home . dc instruction completeed . Rx given
[2020-04-02] MEDS ORDERED: LATANOPROST(OPTH) 2.5 ML BTL OP SCH (21:00)
== END 2020-04-02 15:39 | disposition home or self-care (01) ==
LOC: FSED 10:15 → ERHOLD 12:24 → INTOOBSV 12:24 → IMCU 15:02
PROVIDERS: ADMIT Family Medicine; ATTEND Family Medicine
DX: A41.9 Sepsis, unspecified organism (principal); I25.10 Atherosclerotic heart disease of native coronary artery without angina pectoris; E11.9 Type 2 diabetes mellitus without complications; N40.0 Benign prostatic hyperplasia without lower urinary tract symptoms; I10 Essential (primary) hypertension; E78.5 Hyperlipidemia, unspecified; M54.2 Cervicalgia; R50.9 Fever, unspecified; J18.9 Pneumonia, unspecified organism; Z11.59 Encounter for screening for other viral diseases; E78.00 Pure hypercholesterolemia, unspecified
CPT/HCPCS: 36415 ×2; 70450; 71046; 80048 ×2; 80053; 80076; 81003; 82550 ×2; 82553 ×2; 84484 ×2; 85025 ×2; 87040; 87086; 93005; 99284; G0378 ×2; J0456; J0692; J0696; J1650 ×2; J3370; J7030; J7050; U0002; 82948

== ENCOUNTER → 2020-07-07 | Outpatient (CLI) | payer MEDICARE ==
[~2020-07-07] MED LIST changes: +AZITHROMYCIN250 MG PO; +CEFUROXIME500 MG PO; +GABAPENTIN300 MG PO; +JARDIANCE10 MG; +LATANOPROST2.5 ML OP; +METOPROLOL TAR100 MG PO; +ONGLYZA5 MG; +OXYCONTIN10 MG PO
--- NOTE | 2020-07-07 15:13 | Diagnostic Imaging Report ---
Exam: CHEST 2 VIEWS Date: 07/07/2020 3:09 PM INDICATION: ^[id number] ^1220 ^COUGH Comparison: 04/01/2020 FINDINGS: Lines/Tubes:Stable midline sternotomy changes and mediastinal surgical clips. Lungs:The lungs are well inflated. No focal consolidation or pulmonary edema. Pleura:No pleural effusion. No pneumothorax. Heart/Mediastinum:The cardiomediastinal silhouette is normal in size and contour. Bones/Soft Tissues: No acute osseous abnormality. Mild to moderate multilevel degenerative changes of the spine are noted. Upper abdomen: Unremarkable. IMPRESSION: Negative for acute intrathoracic process. Signed by: Hugh Dudley MD on 07/07/2020 3:09 PM
== END ==
LOC: RAD 11:57
PROVIDERS: ATTEND Internal Medicine
DX: R07.89 Other chest pain (principal)
CPT/HCPCS: 71046

== ENCOUNTER 2022-11-09 09:24 | Emergency (ER) | payer MEDICARE ==
[~2022-11-09] VITALS: Ht 172.7 cm; Wt 85.1 kg
[2022-11-09] MEDS ORDERED: ACETAMINOPHEN 325 MG TAB PO ONE (11:00)
[2022-11-09] MEDS ORDERED: ACETAMINOPHEN 325 MG TAB ONE (11:24)
[2022-11-09] MEDS ORDERED: SODIUM CHLORIDE 0.9% 1000ML 1,000 ML ONE ×3 (11:24→15:52)
[2022-11-09] MEDS ORDERED: CEFTRIAXONE 1 GM VIAL ONE (11:24)
[2022-11-09] MEDS ORDERED: SODIUM CHLORIDE 0.9% 1000ML 1,000 ML IV ONE ×2 (11:30→13:45)
[2022-11-09 12:04] LABS: ALBUMIN 3.7 g/dL (3.5-5.0); ALBUMIN/GLOBULIN RATIO 1.1 (0.8-2.0); ANION GAP 19.6 mmol/L (8-16); CALCIUM 8.9 mg/dL (8.4-10.2); CREATININE, SERUM 1.35 mg/dL (0.72-1.25); POTASSIUM 4.6 mmol/L (3.5-5.1)
[2022-11-09 12:11] LABS: CREATINE KINASE MB 3.1 ng/mL (0-5.0)
[2022-11-09] MEDS ORDERED: SODIUM CHLORIDE 0.9% 250ML 250 ML ONE (12:23)
[2022-11-09] MEDS ORDERED: SODIUM CHLORIDE 0.9% 1000ML 1,000 ML IV SCH ×2 (13:45→15:15)
[2022-11-09 16:00] VITALS: BP 103/70
== END 2022-11-09 16:02 | disposition other institution (70) ==
LOC: FSED 09:44
DX: R09.02 Hypoxemia (principal); A41.9 Sepsis, unspecified organism; E11.65 Type 2 diabetes mellitus with hyperglycemia; I10 Essential (primary) hypertension; Z20.822 Contact with and (suspected) exposure to COVID-19; R94.31 Abnormal electrocardiogram [ECG] [EKG]
CPT/HCPCS: 36415; 71045; 80053; 81003; 82550; 82553; 83518; 83605; 84484; 85025; 87040; 87086; 87186; 87400; 93005; 99284; J0456; J0696; J7030; J7050; U0002

== ENCOUNTER → 2024-02-19 | Day surgery (SDC) | payer MEDICARE ==
[2024-02-13 11:40] LABS: BASOPHILS % 0.4 % (0.0-1.0); EOSINOPHILS # (AUTO) 0.1 (0.0-0.4); EOSINOPHILS % 1.8 % (0.0-6.0); HEMATOCRIT 42.3 % (38.2-49.6); HEMOGLOBIN 13.6 g/dL (14.0-18.0); LYMPHOCYTES # (AUTO) 1.4 (1.0-3.2); LYMPHOCYTES % 19.1 % (18.0-39.1); MEAN CORPUSCULAR HEMOGLOBIN 32.7 pg (28-32); MEAN CORPUSCULAR HGB CONC 32.2 g/dL (31-35); MEAN CORPUSCULAR VOLUME 101.7 fL (81-99); MONOCYTES # (AUTO) 0.8 (0.2-0.8); MONOCYTES % 11.2 % (4.4-11.3); NEUTROPHILS # (AUTO) 4.8 (2.1-6.9); NEUTROPHILS % 66.8 % (38.7-80.0); PLATELET COUNT 199 x10e3/uL (140-360); RED BLOOD COUNT 4.16 x10e6/uL (4.3-5.7); RED CELL DISTRIBUTION WIDTH 12.5 % (11.7-14.4); WHITE BLOOD COUNT 7.12 x10e3/uL (4.8-10.8)
[~2024-02-19] MED LIST changes: +ALBUTEROL INH; +ANTIFUNGAL CREA14 GM; +CEPHALEXIN500 MG PO; +COQ-10100 MG PO; +EPHEDRINE SULFATE INJ 50 MG/ML VIAL ONE; +FEROSUL325 MG PO; +HYOSCYAMINE SULFATE 0.5 MG/ML INJ ONE; +JANUVIA50 MG PO; +JARDIANCE10 MG PO; +LIDOCAINE HCL 2% LOCAL INJ 5 ML SDV VIAL INJ ONE; +LOSARTAN POTASS25 MG PO; +MELOXICAM7.5 MG PO; +METOPROLOL SUCC25 MG PO; +MULTI-VITAMIN1 EACH PO; +MUPIROCIN22 GM TOP; +ONDANSETRON ODT4 MG PO; +OXYCODONE-ACET1 EAC3 PO; +OZEMPIC0.25 MG/02; +PANTOPRAZOLE SO40 MG PO; +PRESERVISION A1 EAC6 PO; +PROPOFOL IV EMULSION 50 ML IV ONE; +TIZANIDINE HCL4 MG PO; +VITAMIN C500 MG PO; +XTAMPZA ER9 MG; +XTAMPZA ER9 MG PO; +augmentin PO
[2024-02-19] MEDS: LACTATED RINGER'S 1,000 ML ONE (12:42)
[2024-02-19 14:45] VITALS: BP 115/71; PULSE 67; RESP 16; O2SAT 98
== END | disposition home or self-care (01) ==
LOC: OR 11:54
PROVIDERS: ATTEND Internal Medicine Gastroenterology
DX: R93.5 Abnormal findings on diagnostic imaging of other abdominal regions, including retroperitoneum (principal); K52.9 Noninfective gastroenteritis and colitis, unspecified; D12.4 Benign neoplasm of descending colon; K57.30 Diverticulosis of large intestine without perforation or abscess without bleeding; K64.8 Other hemorrhoids; K21.9 Gastro-esophageal reflux disease without esophagitis; D64.9 Anemia, unspecified; G47.33 Obstructive sleep apnea (adult) (pediatric); B19.20 Unspecified viral hepatitis C without hepatic coma; N20.0 Calculus of kidney; E11.9 Type 2 diabetes mellitus without complications; I10 Essential (primary) hypertension; I25.810 Atherosclerosis of coronary artery bypass graft(s) without angina pectoris; H91.90 Unspecified hearing loss, unspecified ear; M54.2 Cervicalgia; M06.9 Rheumatoid arthritis, unspecified; M19.90 Unspecified osteoarthritis, unspecified site; Z01.812 Encounter for preprocedural laboratory examination; Z79.82 Long term (current) use of aspirin; Z79.1 Long term (current) use of non-steroidal anti-inflammatories (NSAID); Z79.84 Long term (current) use of oral hypoglycemic drugs; Z79.899 Other long term (current) drug therapy; Z95.1 Presence of aortocoronary bypass graft; Z87.01 Personal history of pneumonia (recurrent)
CPT/HCPCS: 36415; 45378; 45385; 85025; 88305; J1980; J2001

== ENCOUNTER → 2024-03-13 | Outpatient (REF) | payer MEDICARE ==
[~2024-03-13] MED LIST changes: -EPHEDRINE SULFATE INJ 50 MG/ML VIAL ONE; -HYOSCYAMINE SULFATE 0.5 MG/ML INJ ONE; -LIDOCAINE HCL 2% LOCAL INJ 5 ML SDV VIAL INJ ONE; -PROPOFOL IV EMULSION 50 ML IV ONE
== END ==
LOC: DX 09:00
PROVIDERS: ATTEND Nurse Practitioner
DX: D64.9 Anemia, unspecified (principal)
CPT/HCPCS: 74250